=== PATIENT | male | born 1965 | race Caucasian/White ===

== ENCOUNTER 2021-01-03 11:07 | Emergency (ER) | payer OTHER ==
[~2021-01-03] VITALS: Ht 177.8 cm; Wt 81.8 kg
[2021-01-03 11:12] VITALS: TEMP 98.1
[2021-01-03 11:55] LABS: COLLECTION METHOD CLEAN CATCH
[2021-01-03 12:04] LABS: MUCOUS Present /lpf; PH 7 (5-8); SQUAMOUS EPITHELIAL 0-2 /hpf; URINE APPEARANCE Hazy; URINE BACTERIA None Seen /hpf; URINE BILIRUBIN Negative (NEGATIVE); URINE BLOOD Negative (NEGATIVE); URINE COLOR Yellow; URINE GLUCOSE Negative (NEGATIVE); URINE KETONE Negative (NEGATIVE); URINE LEUKOCYTE ESTERASE Negative (NEGATIVE); URINE NITRATE Negative (NEGATIVE); URINE PROTEIN(semi-quant) Negative (NEGATIVE); URINE RBC 0-2 /hpf; URINE UROBILINOGEN Negative (NEGATIVE)
[2021-01-03 12:58] LABS: BASO % 0.4 % (0.0-2.0); EOS # 0.2 (0.0-0.7); EOS % 2.9 % (0-4.0); GRAN % 77.7 % (42.2-75.2); HEMOGLOBIN 14.3 g/dl (13.5-18.0); LYMPH % 12.8 % (20.0-51.0); MEAN CELL VOLUME 92 fl (80.0-100.0); MEAN CORPUSCULAR HEMOGLOBIN 32 pg (27.0-31.0); MEAN CORPUSCULAR HGB CONC 35 g/dl (33.0-37.0); MEAN PLATELET VOLUME 9.4 fl (7.4-10.4); MONO # 0.5 (0.1-0.6); MONO % 5.9 % (1.7-9.3); PLATELET COUNT 177 K/mm3 (130-400); RED BLOOD COUNT 4.46 M/mm3 (4.20-5.60); REDCELL DISTRIBUTION WIDTH-CV 14.4 % (11.5-14.5)
[2021-01-03 13:13] LABS: ALBUMIN 4.6 gm/dL (3.5-5.0); BILIRUBIN,TOTAL 0.9 mg/dL (0.0-1.0); CALCIUM 10.2 mg/dL (8.4-10.2); CREATININE, serum 0.93 (0.66-1.25); POTASSIUM 4.3 mmol/L (3.4-5.0); TOTAL PROTEIN 7.5 gm/dL (6.4-8.2)
[2021-01-03 17:54] VITALS: BP 148/69; PULSE 80
== END 2021-01-03 17:54 | disposition home or self-care (01) ==
LOC: COL.ER 11:07
PROVIDERS: Emergency Medicine
DX: R20.0 Anesthesia of skin (principal); I10 Essential (primary) hypertension; I25.2 Old myocardial infarction; Z20.822 Contact with and (suspected) exposure to COVID-19; Z95.0 Presence of cardiac pacemaker
CPT/HCPCS: A9585